=== PATIENT | male | born 1960 | race Caucasian/White ===

== ENCOUNTER 2017-10-08 09:39 | Emergency (ER) | payer SELFPAY ==
[~2017-10-08 09:39] MED LIST: ACE325 PO; ACE500 PO; AMLO-1 PO; ASPI-870; AZIT1PAC21 *; CARI250T10 PO; CEPH-13 PO; CLIN300C99 PO; COM14R INH; CYAN500T54 PO; DIPH-740 PO; ENOX120D5 SQ; GUAI600T57 PO; GUALA600 PO; HYDR-2966 PO; HYDR-4309 PO; IBUP-1618 PO; LEVO-85 PO; MAGN400T10; MELA10TA3; METF-411 PO; MULT1CAP41 PO; NAP250 PO; OMEG-11 PO; OMEP-137 PO; ONDA4TAB PO; OXYC10TA67 PO; PER PO; SUCR1TAB85 PO; TRAM-420 PO; WAR5 PO
[2017-10-08] MEDS ORDERED: LISI-362 PO (09:49)
[2017-10-08] MEDS ORDERED: FAMO-67 PO (09:49)
[2017-10-08] MEDS ORDERED: METO25TA23 PO (09:49)
[2017-10-08] MEDS ORDERED: OMEP40CA48 PO (09:49)
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
[2017-10-08] MEDS ORDERED: fentaNYL CITR 100 MCG/2 ML AMP IVP ONE ×2 (09:55→10:40)
[2017-10-08] MEDS ORDERED: ONDANSETRON 4 MG/2 ML VIAL IVP ONE (10:45)
--- NOTE | 2017-10-08 10:52 | RADIOLOGY IMAGING REPORT ---
FACILITY: [facility] PATIENT NAME: Mitchel Cat : 1960 MR: [id number] V: [id number] EXAM DATE: ORDERING PHYSICIAN: FADI ARMAS TECHNOLOGIST: Location: [facility] [place] Patient: Mitchel Cat : 1960 Visit/Account:[id number] Date of Sevice: 10/08/2017 ADDENDUM #2 There appears to be lateral offset of the bases of the left third fourth and fifth metatarsals and po ssibly the second as well. Findings were discussed by telephone with Dr. Brown at approximately 115 2 on October 08, 2017 Report Dictated By: Carley Ritchie MD at 10/08/2017 11:53 AM Report E-Signed By: Carley Ritchie MD at 10/08/2017 11:55 AM ADDENDUM #1 All of the images are marked left however the paperwork states this is a right foot therefore clinica l correlation of laterality needed. Report Dictated By: Carley Ritchie MD at 10/08/2017 11:03 AM Report E-Signed By: Carley Ritchie MD at 10/08/2017 11:03 AM ORIGINAL REPORT Exam type: FOOT 3 VIEW RIGHT History: injury, pain and swelling lateral side of right foot Comparison: Right ankle performed today. Findings: There is a transverse fracture through the distal metaphysis of the head of the left third metatarsal with plantar angulation of the distal fracture fragment. There is a slightly comminuted fracture th rough the distal metaphysis of the head of the left fourth metatarsal with 7 mm lateral displacement of the distal fracture fragment and 4 mm overriding of the fracture fragments IMPRESSION: 1. Fractures through the distal metaphyses of the left third and fourth metatarsals as described abo ve Report Dictated By: Carley Ritchie MD at 10/08/2017 10:46 AM Report E-Signed By: Carley Ritchie MD at 10/08/2017 10:49 AM WSN:[email or web address]
[2017-10-08] MEDS ORDERED: KETAMINE HCL 500 MG/5 ML VIAL IVP ONE (10:55)
[2017-10-08] MEDS ORDERED: PROPOFOL EMUL 10MG/ML 20 ML VL IVP ONE (10:55)
--- NOTE | 2017-10-08 11:07 | RADIOLOGY IMAGING REPORT ---
FACILITY: [facility] PATIENT NAME: Mitchel Cat : 1960 MR: [id number] V: [id number] EXAM DATE: ORDERING PHYSICIAN: FADI ARMAS TECHNOLOGIST: [place] [facility] [place]: Mitchel Cat : 1960 Visit/Account:[id number] Date of Sevice: 10/08/2017 Exam type: ANKLE 3 VIEW MIN RIGHT History: Injury pain and swelling lateral side of right foot Comparison: Foot series performed today (please see no concerning laterality) Findings: All images are marked left. The paperwork states this is a right ankle therefore clinical correlatio n of laterality needed. Study is limited as an AP view was not submitted. No definite evidence of a cute fracture or dislocation on provided ankle images seen however if this remains of strong clinical concern repeat study recommended. Please see today's foot series concerning fractures of the third and fourth metatarsals IMPRESSION: 1. No definite evidence of acute fracture dislocation on this limited study. An AP view was not sub mitted. Of note all the images are marked left however the paperwork states this is a right ankle th erefore clinical correlation of laterality needed. Report Dictated By: Carley Ritchie MD at 10/08/2017 10:49 AM Report E-Signed By: Carley Ritchie MD at 10/08/2017 11:02 AM WSN:[email or web address]
--- NOTE | 2017-10-08 11:58 | RADIOLOGY IMAGING REPORT ---
FACILITY: [facility] PATIENT NAME: Mitchel Cat : 1960 MR: [id number] V: [id number] EXAM DATE: ORDERING PHYSICIAN: FADI ARMAS TECHNOLOGIST: Location: [facility] Patient: Mitchel Cat : 1960 Visit/Account:[id number] Date of Sevice: 10/08/2017 Exam type: ANKLE 2 VIEW RIGHT History: post reduction Comparison: Right ankle series performed earlier today. Findings: There is no evidence of acute fractures condition involving the right ankle. There is suggestion of a lateral offset of the bases of the right third fourth and fifth metatarsals. Please see today's ri t foot series for additional findings IMPRESSION: 1. No evidence of acute fractures condition involving the right ankle There is suggestion of lateral offset of the bases of the third fourth and fifth metatarsals. Please see today's right foot dictation Report Dictated By: Carley Ritchie MD at 10/08/2017 11:36 AM Report E-Signed By: Carley Ritchie MD at 10/08/2017 11:53 AM WSN:[email or web address]
[2017-10-08] MEDS ORDERED: HYDROmorphone* 1 MG/ML 1 MG/ML ML IVP ONE ×2 (12:10→13:10)
[2017-10-08] MEDS ORDERED: DOCU-416 PO (12:32)
[2017-10-08] MEDS ORDERED: OXYC10TA67 PO (12:32)
[2017-10-08 13:00] VITALS: BP 101/65
--- NOTE | 2017-10-08 13:02 | RADIOLOGY IMAGING REPORT ---
FACILITY: [facility] [place] PATIENT NAME: Mitchel Cat : 1960 MR: [id number] V: [id number] EXAM DATE: ORDERING PHYSICIAN: FADI ARMAS TECHNOLOGIST: Location: [facility] [place] Patient: Mitchel Cat : 1960 Visit/Account:[id number] Date of Sevice: 10/08/2017 ANKLE RIGHT W/O CONTRAST, FOOT RIGHT W/O CONTRAST COMPARISON: Right ankle and foot radiographs earlier today. HISTORY: post reduction. TECHNIQUE: Noncontrast axial CT of the right ankle and right foot with coronal and sagittal reformat s. One of the following dose optimization techniques was utilized in the performance of this exam: auto mated exposure control; adjustment of the mA and/or kV according to patient size; or use of iterative reconstruction technique. Specific details can be referenced in the facility's radiology CT exam op erational policy. CONTRAST: None. FINDINGS: BONES : Abnormal lateral subluxation of the first metatarsal base with respect to the medial cuneifo rm, laterally offset by 5 mm, with small chip fracture fragments within the first TMT joint medially and slight blunting of the medial first metatarsal base probably representing the donor sites. Abnormal lateral subluxation at the second TMT joint by about 3 mm, and 2 mm of dorsal subluxation, w ith small chip fracture fragments from the second metatarsal base noted in the joint medially and lat erally. Abnormal lateral subluxation of the third metatarsal base of the third TMT joint by about 11 mm with numerous small chip fracture fragments from the third metatarsal base in the joint and in the space b etween the widened second and third TMT joints. Abnormal lateral subluxation of the fourth metatarsal of the TMT joint, by about 11 mm, with small ch ip fracture fragments noted near the base of the fourth metatarsal which are probably arising from th e lateral cuboid given blunting of the cuboid on ankle series 4 image 40. Mild lateral subluxation of the fifth TMT joints. Sagittal image, there are small chip fracture fragm ents from the fifth metatarsal base noted along the dorsal margin of the fifth metatarsal base. Small accessory ossifications adjacent to the calcaneocuboid joint. Calcaneal height is preserved. A small Tristan deformity is present. Small plantar posterior calcaneal enthesophytes are noted. Subtal ar joint and tibiotalar joint alignment are maintained. Small anterior tibial plafond spurring consis tent with mild osteoarthritis.. Acute transverse fracture of the third metatarsal neck with mild impaction. Acute oblique fracture of the fourth metatarsal neck with 5 mm lateral displacement and mild overridi ng of the fracture fragments. Small chronic appearing bone fragments adjacent to the tip of the lateral malleolus without evidence of acute lateral, medial or posterior malleolus fracture of the ankle. FLUID: No appreciable effusion or drainable fluid collection. SOFT TISSUES: Moderate lateral soft tissue swelling in the ankle and midfoot no evidence of bony ten don entrapment.. No focal muscle atrophy or appreciable muscle edema. OTHER: Negative. IMPRESSION: 1. Acute Lisfranc fracture dislocation of the first through fifth TMT joints, described in detail ab ann. There is mild to moderate lateral subluxation of all of the metatarsal bases, and there is mild dorsal subluxation at the second TMT joint. 2. Acute fractures of the third and fourth metatarsal necks. 3. Chronic bone fragments adjacent to the lateral malleolus, probably related to remote trauma. Report Dictated By: Danny Lopez at 10/08/2017 12:35 PM Report E-Signed By: Danny Lopez at 10/08/2017 12:58 PM WSN:[id number]
--- NOTE | 2017-10-08 13:03 | RADIOLOGY IMAGING REPORT ---
FACILITY: [facility] - [place] PATIENT NAME: Mitchel Cat : 1960 MR: [id number] V: [id number] EXAM DATE: ORDERING PHYSICIAN: FADI ARMAS TECHNOLOGIST: Location: [facility] - [place] Patient: Mitchel Cat : 1960 Visit/Account:[id number] Date of Sevice: 10/08/2017 ANKLE RIGHT W/O CONTRAST, FOOT RIGHT W/O CONTRAST COMPARISON: Right ankle and foot radiographs earlier today. HISTORY: post reduction. TECHNIQUE: Noncontrast axial CT of the right ankle and right foot with coronal and sagittal reformat s. One of the following dose optimization techniques was utilized in the performance of this exam: auto mated exposure control; adjustment of the mA and/or kV according to patient size; or use of iterative reconstruction technique. Specific details can be referenced in the facility's radiology CT exam op erational policy. CONTRAST: None. FINDINGS: BONES : Abnormal lateral subluxation of the first metatarsal base with respect to the medial cuneifo rm, laterally offset by 5 mm, with small chip fracture fragments within the first TMT joint medially and slight blunting of the medial first metatarsal base probably representing the donor sites. Abnormal lateral subluxation at the second TMT joint by about 3 mm, and 2 mm of dorsal subluxation, w ith small chip fracture fragments from the second metatarsal base noted in the joint medially and lat erally. Abnormal lateral subluxation of the third metatarsal base of the third TMT joint by about 11 mm with numerous small chip fracture fragments from the third metatarsal base in the joint and in the space b etween the widened second and third TMT joints. Abnormal lateral subluxation of the fourth metatarsal of the TMT joint, by about 11 mm, with small ch ip fracture fragments noted near the base of the fourth metatarsal which are probably arising from th e lateral cuboid given blunting of the cuboid on ankle series 4 image 40. Mild lateral subluxation of the fifth TMT joints. Sagittal image, there are small chip fracture fragm ents from the fifth metatarsal base noted along the dorsal margin of the fifth metatarsal base. Small accessory ossifications adjacent to the calcaneocuboid joint. Calcaneal height is preserved. A small Tristan deformity is present. Small plantar posterior calcaneal enthesophytes are noted. Subtal ar joint and tibiotalar joint alignment are maintained. Small anterior tibial plafond spurring consis tent with mild osteoarthritis.. Acute transverse fracture of the third metatarsal neck with mild impaction. Acute oblique fracture of the fourth metatarsal neck with 5 mm lateral displacement and mild overridi ng of the fracture fragments. Small chronic appearing bone fragments adjacent to the tip of the lateral malleolus without evidence of acute lateral, medial or posterior malleolus fracture of the ankle. FLUID: No appreciable effusion or drainable fluid collection. SOFT TISSUES: Moderate lateral soft tissue swelling in the ankle and midfoot no evidence of bony ten don entrapment.. No focal muscle atrophy or appreciable muscle edema. OTHER: Negative. IMPRESSION: 1. Acute Lisfranc fracture dislocation of the first through fifth TMT joints, described in detail ab ann. There is mild to moderate lateral subluxation of all of the metatarsal bases, and there is mild dorsal subluxation at the second TMT joint. 2. Acute fractures of the third and fourth metatarsal necks. 3. Chronic bone fragments adjacent to the lateral malleolus, probably related to remote trauma. Report Dictated By: Danny Lopez at 10/08/2017 12:35 PM Report E-Signed By: Danny Lopez at 10/08/2017 12:58 PM WSN:[id number]
[2017-10-08] MEDS ORDERED: NS(*) 0.9% 1000 ML BAG 1,000 ML IV ONE (13:30)
== END 2017-10-08 13:18 | disposition home or self-care (01) ==
LOC: ER 09:50
DX: S92.331A Displaced fracture of third metatarsal bone, right foot, initial encounter for closed fracture (principal); S92.341A Displaced fracture of fourth metatarsal bone, right foot, initial encounter for closed fracture; S93.04XA Dislocation of right ankle joint, initial encounter; S93.324A Dislocation of tarsometatarsal joint of right foot, initial encounter; W23.0XXA Caught, crushed, jammed, or pinched between moving objects, initial encounter
CPT/HCPCS: 27840; 73600; 73610; 73630; 73700; 96361; 96374; 96375; 96376; 99152; 99285; J1170; J2405; J2704; J3010; J7030

== ENCOUNTER → 2017-10-15 | Outpatient (CLI) | payer SELFPAY ==
[~2017-10-15] MED LIST changes: +DOCU-416 PO; +FAMO-67 PO; +LISI-362 PO; +METO25TA23 PO; +OMEP40CA48 PO
[2017-10-15 15:23] LABS: PLATELET COUNT, AUTOMATED 162 K/uL (150-450)
--- NOTE | 2017-10-15 15:31 | EKG ---
FACILITY: [facility] - [place] PATIENT NAME: LIAN THOMAS : [id number] MR: [id number] V: [id number] EXAM DATE: ORDERING PHYSICIAN: FREDRICK CORDERO TECHNOLOGIST: JOEL Cardenas Reason : PREOP-MIDFOOT Blood Pressure : / mmHG Vent. Rate : 071 BPM Atrial Rate : 071 BPM P-R Int : 174 ms QRS Dur : 078 ms QT Int : 378 ms P-R-T Axes : 040 022 032 degrees QTc Int : 410 ms Normal sinus rhythm Septal infarct , age undetermined Abnormal ECG When compared with ECG of 06-JUL-2016 16:43, Septal infarct is now present T wave amplitude has increased in Lateral leads Referred By: CONSUELO Confirmed By:
== END ==
LOC: LAB 15:10
PROVIDERS: ATTEND Anesthesiology
DX: Z01.812 Encounter for preprocedural laboratory examination (principal); Z01.810 Encounter for preprocedural cardiovascular examination; E11.9 Type 2 diabetes mellitus without complications; M84.474A Pathological fracture, right foot, initial encounter for fracture
CPT/HCPCS: 36415; 82040; 82247; 82310; 82374; 82435; 82565; 82947; 83036; 84075; 84132; 84155; 84295; 84450; 84460; 84520; 85025; 93005

== ENCOUNTER 2017-10-16 08:00 | Day surgery (SDC) | payer SELFPAY ==
[~2017-10-16] VITALS: Ht 182.9 cm; Wt 111.1 kg
[2017-10-16] MEDS: FAMOTIDINE 20 MG TAB PO ONE ×2 (10:10→11:07)
[2017-10-16] MEDS ORDERED: LIDOCAINE/SOD BICARB 8.4% SYR ID ONE (10:10)
[2017-10-16] MEDS ORDERED: MIDAZOLAM 2 MG/2 ML VIAL IVP PRN (10:10)
[2017-10-16] MEDS ORDERED: CLINDAMYCIN(*) 600 MG/NS 50 ML 50 ML IVPB ONE (10:10)
[2017-10-16] MEDS ORDERED: NORMOSOL R SOLN(*) 1000 ML BAG 1,000 ML IV PRN (10:10)
[2017-10-16 11:10] VITALS: BP 106/71
[2017-10-16] MEDS ORDERED: ROPIVACAINE 0.2% 20 ML VIAL ONE ×2 (11:49→13:13)
[2017-10-16] MEDS ORDERED: ROPIVACAINE 0.2% 400 MG/200ML 250 ML CONINFUS ONE ×2 (12:30→13:10)
[2017-10-16] MEDS ORDERED: ROPIVACAINE 0.5% 20 ML VIAL ONE (13:13)
[2017-10-16] MEDS ORDERED: DEXAMETHASONE SOD PHOS 10MG/ML ONE (13:14)
[2017-10-16] MEDS ORDERED: PROPOFOL EMUL(*) 10MG/ML 20 ML 20 ML ONE (13:14)
[2017-10-16] MEDS ORDERED: fentaNYL CITR 250 MCG/5 ML AMP ONE (13:14)
[2017-10-16] MEDS ORDERED: LIDOCAINE MPF 1% 5 ML VIAL ONE (13:14)
[2017-10-16] MEDS ORDERED: LIDOCAINE 2% IV 100 MG/5ML SYR ONE (13:14)
[2017-10-16] MEDS ORDERED: DEXAMETHASONE SOD 4 MG/ML VIAL ONE (13:45)
[2017-10-16] MEDS ORDERED: ONDANSETRON 4 MG/2 ML VIAL ONE (13:47)
--- NOTE | 2017-10-16 15:34 | OPERATIVE REPORT 1 ---
EVENT DATE: October 16, 2017 SURGEON: Micha Stauffer MD ANESTHESIOLOGIST: Elliot Barrett MD ANESTHESIA: General with popliteal and saphenous block. ASSOCIATE APPLICATION DEVELOPER: SARAH Galvan PREOPERATIVE DIAGNOSIS Midfoot dislocation with fractures of the third and fourth metatarsal heads. POSTOPERATIVE DIAGNOSIS Midfoot dislocation with fractures of the third and fourth metatarsal heads. PROCEDURE PERFORMED Open reduction and internal fixation of the midfoot with percutaneous pinning with open reduction and percutaneous pinning of the third and fourth metatarsal heads. TOURNIQUET TIME Less than an hour and a half. ESTIMATED BLOOD LOSS Minimal, less than 20 mL. COMPLICATIONS None. DESCRIPTION OF PROCEDURE Patient was brought to the operating room and placed in the supine position. A bump was placed under his right leg to realign his right lower extremity. He was prepped and draped in a normal sterile fashion using Pravail sterile stockinettes. Sterile U-drape and a sterile extremity drape were placed over the lower extremity. The stockinette was incised above the knee and held with Coban. Esmarch was then used to exsanguinate the lower extremity with the tourniquet turned up to 300 mmHg. A first incision was made directly between the first and second TMT joints. Skin was incised with a 15 blade down through the subcutaneous tissue, the subcutaneous tissue bluntly dissected down to the neurovascular bundle which was pushed off to the side, though it was directly in our way, which we had to put a little bit of pressure on it. At this point we were able to get down right to the first, second and Lisfranc TMT joints. At this point both the first, the second and the Lisfranc joints were completely disrupted. All ligaments were torn. It was completely unstable. I placed a 2-point reduction clamp, reducing the second and the medial and the cuneiform to lock in the Lisfranc joint. At this point I could then reduce the first TMJ joint. With that first reduced, I brought fluoroscopy in, made sure I had good alignment, which I did. I then placed a screw in a non-lag manner across it by using a 2.5 drill and placing a 3.5 screw. At this point I then placed a screw from the medial cuneiform over to the second metatarsal shaft to hold the Lisfranc in place. When I did that I found that the second TMT joint was stable. I then made a second incision between the third and four TMT joints , skin incised with a 15 blade, dissected through the subcutaneous tissue, the subcutaneous tissue blunting dissected all the way down to the third and fourth TMT joints. I found that the third TMT joint was also completely disrupted and had to be reduced. I placed a 2.0 reduction clamp across it, brought fluoroscopy in, did an AP and lateral and made sure I had good reduction. At that point I placed a screw across it in a non-lag manner. Once I had the whole medial column aligned correctly, the fourth and fifth came into alignment and stabilized. Though there were some ligament tears dorsally, I think there was some good ligaments on the plantar aspect which were holding is stable, therefore I left them as is. I then turned my attention to the fourth metatarsal head, made a small incision directly dorsally over top, bluntly dissected all the way down, moved the extensor tendon off laterally, was able to get down to the fracture. Once I had the fracture, I placed a small 2.0 reduction clamp across the fracture. From the plantar aspect of the toe I was able to go directly into the metatarsal head with percutaneous pin and go directly up the metatarsal along the shaft without much difficulty. This held this in place nicely. I was able to remove the 2.0 reduction clamp. Fluoroscopy was brought in, made sure the pin was in good position, and the fracture was in good alignment. Second, from that same incision on the fourth I was able to move over to the third metatarsal head, find it, bring it from a plantar flexed position up to a neutral position. From there I was able to place another percutaneous pin underneath the third toe into the metatarsal head and directly up the shaft. This was slightly askew, but I had a good fixation of the fracture and good stabilization from what I could feel directly identifying it. Therefore I left the pin in that position there because I felt it was stable. At this point we closed using 3-0 Monocryl and lorri, adaptic 4 x 4's, big bulky Moraes dressing. Patient went to recovery. ROLANDA
[2017-10-16] MEDS ORDERED: KETOROLAC 30 MG/ML VIAL ONE (15:51)
[2017-10-16 16:30] VITALS: BP 95/54
[2017-10-16 16:37] VITALS: BP 100/63
[2017-10-16] MEDS ORDERED: ALBUTEROL/IPRATROPIUM 3 ML NEB ONE (16:42)
[2017-10-16 16:56] VITALS: BP 97/72
== END 2017-10-16 16:30 | disposition home or self-care (01) ==
LOC: OR 08:00
PROVIDERS: ATTEND Orthopaedic Surgery
DX: S92.334A Nondisplaced fracture of third metatarsal bone, right foot, initial encounter for closed fracture (principal); S92.344A Nondisplaced fracture of fourth metatarsal bone, right foot, initial encounter for closed fracture; S93.334A Other dislocation of right foot, initial encounter; R73.03 Prediabetes
CPT/HCPCS: 28465; 28485; 36416; 76000; 76942; 82948; 94640; 94667; C1713; J1100; J1885; J2001; J2250; J2405; J2704; J2795; J3010; J7620